=== PATIENT | female | born 1940 | race Caucasian/White ===

== ENCOUNTER 2018-12-30 07:28 | Inpatient (IN) | payer MEDICARE, SELFPAY ==
[~2018-12-30] VITALS: Ht 157.5 cm; Wt 44.0 kg
[2018-12-30] MEDS ORDERED: LEVSOD75 PO (07:54)
[2018-12-30 08:07] LABS: BASOPHILS ABSOLUTE AUTO 0.04 K/mm3 (0.00-0.23); BASOPHILS PERCENT AUTO 1 % (0-2); EOSINOPHILS ABSOLUTE AUTO 0.03 K/mm3 (0.00-0.68); EOSINOPHILS PERCENT AUTO 1 % (0-6); Hematocrit 45.1 % (33.0-51.0); Hemoglobin 14.9 g/dL (11.5-16.0); IMMATURE GRAN ABSOLUTE AUTO 0.02 K/mm3 (0.00-0.10); IMMATURE GRAN PERCENT AUTO 0 % (0-1); LYMPHOCYTES PERCENT AUTO 11 % (21-46); MONOCYTES PERCENT AUTO 9 % (4-13); Mean Corpuscular Volume 94 fL (80-100); Mean Platelet Volume 10.4 fL (9.1-12.4); NEUTROPHILS ABSOLUTE AUTO 5.06 K/mm3 (1.96-9.15); NEUTROPHILS PERCENT AUTO 78 % (41-73); Platelet Count 244 K/mm3 (150-400); RDW Standard Deviation 41.4 fL (35.1-46.3); White Blood Cell Count 6.45 K/mm3 (4.00-11.30)
[2018-12-30 08:33] LABS: Alanine Aminotransfer (ALT/SGP 20 U/L (12-78); Albumin, Blood 3.8 g/dL (3.4-5.0); Alk Phos 97 U/L (50-136); Anion Gap 7 mmol/L (6-16); Aspartate Aminotrans (AST/SGOT 18 U/L (12-37); Blood Urea Nitrogen 13 mg/dL (8-24); Bun/Creatinine Ratio 13.6 (12.0-20.0); CO2, Blood 31 mmol/L (21-32); Calcium, Blood 8.9 mg/dL (8.5-10.1); Chloride, Blood 96 mmol/L (98-108); Creatinine, Blood 0.96 mg/dL (0.40-1.00); Glomerular Filtration Rate >60 (60-); Glucose, Blood 110 mg/dL (70-99); Potassium, Blood 3.4 mmol/L (3.5-5.5); Sodium, Blood 134 mmol/L (136-145); Total Protein, Blood 7.8 g/dL (6.4-8.2)
[2018-12-30 10:34] LABS: Source, Urine Clean Catch
[2018-12-30 10:40] LABS: Appearance, Urine Clear (Clear); Bilirubin, Urine Neg (Neg); Blood, Urine Neg (Neg); Color, Urine Yellow (P-Yellow); Glucose Qualitative, Urine Neg (Neg); Ketones, Urine 2+ (Neg); Leukocyte Esterase, Urine Neg (Neg); Nitrite, Urine Neg (Neg); Protein, Urine 1+ (Neg); Urobilinogen, Urine 1+ (Normal)
--- NOTE | 2018-12-30 17:48 | NUR ---
SHIFT SUMMARY PT A&OX4, VSS. PAIN MANAGED PER EMAR; FENTANYL AND OXYCODONE AVAILABLE. NAUSEA TX'D WITH IV ZOFRAN, ODT IS ALSO AVAILABLE. LOST 2 IVS TODAY; PLAN IS FOR POWERGLIDE PLACEMENT AT NOC SHIFT WHEN MED FLOOR HAS A PROCEDURE NURSE AVAILABLE. AMB INDEPENDENT TO BRP, VOIDING WELL, MANJU SMALL AMT CLEARS. WCTM & TX PRN UNTIL REPORT GIVEN TO ONCOMING NOC RN.
--- NOTE | 2018-12-31 05:33 | NUR ---
SHIFT SUMMARY PT RESTED WELL T/O NIGHT. AAOX4. TOLERATING SIPS CLEAR LIQUID DIET. PT DENIES PAIN/NAUSEA T/O NIGHT. NEW MIDLINE PLACED THIS SHIFT, IVF RESUMED PER ORDERS. PT UP TO RESTROOM SBA, NO FLATUS + BM THIS SHIFT. CALL LIGHT IN REACH. PT RESTING AT THIS TIME.
[2018-12-31 07:38] LABS: BASOPHILS ABSOLUTE AUTO 0.04 K/mm3 (0.00-0.23); BASOPHILS PERCENT AUTO 1 % (0-2); EOSINOPHILS ABSOLUTE AUTO 0.07 K/mm3 (0.00-0.68); EOSINOPHILS PERCENT AUTO 2 % (0-6); Hematocrit 38.6 % (33.0-51.0); Hemoglobin 12.6 g/dL (11.5-16.0); IMMATURE GRAN ABSOLUTE AUTO 0.01 K/mm3 (0.00-0.10); IMMATURE GRAN PERCENT AUTO 0 % (0-1); LYMPHOCYTES ABSOLUTE AUTO 0.76 K/mm3 (0.84-5.20); LYMPHOCYTES PERCENT AUTO 20 % (21-46); MONOCYTES ABSOLUTE AUTO 0.49 K/mm3 (0.16-1.47); MONOCYTES PERCENT AUTO 13 % (4-13); Mean Corpuscular HGB 30.1 pg (26.0-34.0); Mean Corpuscular HGB Conc 32.6 g/dL (31.5-36.5); Mean Corpuscular Volume 92 fL (80-100); Mean Platelet Volume 10.4 fL (9.1-12.4); NEUTROPHILS ABSOLUTE AUTO 2.51 K/mm3 (1.96-9.15); NEUTROPHILS PERCENT AUTO 65 % (41-73); Platelet Count 195 K/mm3 (150-400); RDW Coefficient Variation 12.1 % (11.7-14.2); RDW Standard Deviation 41.1 fL (35.1-46.3); Red Blood Cell Count 4.18 M/mm3 (3.80-5.20); White Blood Cell Count 3.88 K/mm3 (4.00-11.30)
[2018-12-31 07:53] LABS: Anion Gap 2 mmol/L (6-16); Blood Urea Nitrogen 9 mg/dL (8-24); Bun/Creatinine Ratio 10.3 (12.0-20.0); CO2, Blood 31 mmol/L (21-32); Calcium, Blood 8.4 mg/dL (8.5-10.1); Chloride, Blood 104 mmol/L (98-108); Creatinine, Blood 0.87 mg/dL (0.40-1.00); Glomerular Filtration Rate >60 (60-); Glucose, Blood 97 mg/dL (70-99); Potassium, Blood 3.9 mmol/L (3.5-5.5); Sodium, Blood 137 mmol/L (136-145)
--- NOTE | 2018-12-31 12:28 | NUR ---
pain PATIENT WITH ABD PAIN 7/10 AFTER EATING PART OF FULL LIQUID DIET. AUDIBLE HYPERACTIVE BOWEL TONES AND NAUSEA. PATIENT MEDICATED FOR PAIN AND NAUSEA
--- NOTE | 2018-12-31 14:56 | NUR ---
pain patient reports abd pain 7/10 patient declines pain meds or any other pain interventions at this time. patient belching but not passing flatus, audible bowel sounds head from several feet away from patient
--- NOTE | 2018-12-31 15:16 | NUR ---
report given to lyndsay acuna rn who is assuming care of patient
--- NOTE | 2018-12-31 16:30 | NUR ---
assumed care of pt, recvd report from previous RN Kelsey, pt ambulating in hallway with
--- NOTE | 2019-01-01 06:18 | NUR ---
PT VSS T/O NIGHT. PT DENIED PAIN/N/V. PT REP PASSING SMALL AMT FLATUS, NO BM THIS SHIFT. PT VERBALIZED HESITATION R/T FULL LIQ DIET AFTER INC PAIN AND NAUSEA YESTERDAY W/ADVANCED DIET. PT OFFERED CLEAR LIQ, REQ ONLY WATER. PT AMB INDEP IN ROOM, AMB IN HALLS ENC PT MANJU. IVF CONT PER ORDERS. PT USING CALL LIGHT FOR ASSISTANCE, WILL CONT TO MONITOR UNTIL REP GIVEN TO ONCOMING RN.
--- NOTE | 2019-01-01 09:11 | NUR ---
DR EM IN TO SEE PT.
--- NOTE | 2019-01-01 10:28 | NUR ---
PT IN IMAGING.
--- NOTE | 2019-01-01 11:08 | NUR ---
BACK FROM IMAGING.
--- NOTE | 2019-01-01 11:46 | NUR ---
pt back to imaging
--- NOTE | 2019-01-01 11:53 | NUR ---
BACK FROM IMAGING
--- NOTE | 2019-01-01 16:25 | NUR ---
DR SAAB CALLED REGARDING CONSULT STATED PLANS TO SEE PT IN AM AND MAY ADVANCE PT'S DIET TOLERATED.
--- NOTE | 2019-01-01 17:20 | NUR ---
SUMMARY PT HAD SBFT THIS SHIFT. HAD SEVERAL EPISODES OF LOOSE STOOLS DURING PROCEDURE. REPORTED AN UNWITNESS EPISODE OF EMESIS. PT SITTING UP IN BED AT THIS TIME. STATE PAIN AND NAUSEA BOTH IMPROVED. IV FLUIDS INFUSING W/O DIFFICULTY. PROVIDED BOTTLED WATER PER PT REQUEST. CALL LIGHT IN REACH. PT INDEPENDENT IN ROOM. SPOUSE AT BEDSIDE.
--- NOTE | 2019-01-02 05:41 | NUR ---
PT HAD NO ACUTE CHANGES T/O NIGHT; VSS. PT CONT TO HAVE LOOSE STOOL, REP PAIN AND NAUSEA IMPROVED, DECLINED NEED FOR PAIN/NAUSEA MEDS. ABD LESS FIRM AND DISTENDED. PT UP INDEP IN ROOM, IS USING CALL LIGHT FOR ASSISTANCE, AWAITING SURGICAL CONSULT. WILL CONT TO MONITOR UNTIL REP GIVEN TO ONCOMING RN.
--- NOTE | 2019-01-02 12:15 | NUR ---
PT ATE FISH SANDWICH SPOUSE BROUGHT IN FOR HER. DECLINED LUNCH TRAY, EXCEPT FOR PUDDING. DENIES NAUSEA OR PAIN AT THIS TIME. RESTING IN BED, CALL LIGHT IN REACH.
--- NOTE | 2019-01-02 15:25 | NUR ---
DISCHARGED REVIEWED DC INSTRUCTIONS W/PT AND SPOUSE. VERBALIZED UNDERSTANDING. DC'D IV, CATHETER INTACT. PT LEFT UNIT IN WC ACCOMPANIED BY SPOUSE W/POSSESSIONS AND DC PAPERWORK IN HAND.
[2019-01-21] MEDS ORDERED: ONDA4 PO (16:05)
[2019-01-21] MEDS ORDERED: Roxicodone5 MG PO (16:07)
== END 2019-01-02 15:11 | disposition home or self-care (01) | DRG 390 ==
LOC: ER 07:28 → SURS 10:28
PROVIDERS: Emergency Medicine; ADMIT Hospitalist
DX: K56.600 Partial intestinal obstruction, unspecified as to cause (principal); E03.9 Hypothyroidism, unspecified; K59.00 Constipation, unspecified
CPT/HCPCS: 36415; 74177; 74250; 80048; 80053; 83690; 83735; 85025; 96361-59; 96374-59; 96375-59; 99285-25; J1200; J1650; J2270; J2405; J3010; J7030; Q9967

== ENCOUNTER 2019-01-23 07:14 | Inpatient (IN) | payer MEDICARE, OTHER ==
[~2019-01-23] VITALS: Ht 157.5 cm; Wt 44.1 kg
[~2019-01-23 07:14] MED LIST: LEVSOD75 PO; ONDA4 PO; Roxicodone5 MG PO
--- NOTE | 2019-01-23 07:54 | NUR ---
INTO SDS. Ambulatory in Day Surgery Patient confirms NPO status and agrees with scheduled surgery. Lungs clear T/O to Auscultation.
--- NOTE | 2019-01-23 18:48 | NUR ---
PT POD 1 EX LAP W/SM BOWEL RESECTION. EPIDURAL IN PLACE FOR PAIN MGMT-DERMATOME T5-L1, PT REPORTS GOOD PAIN MGMT. PREVENA DRESSING INTACT/FOAM COMPRESSED OVER MIDLINE INCISION-NO DRAINAGE PRESENT IN CANISTER.
[2019-01-24 03:59] LABS: BASOPHILS ABSOLUTE AUTO 0.01 K/mm3 (0.00-0.23); BASOPHILS PERCENT AUTO 0 % (0-2); EOSINOPHILS PERCENT AUTO 0 % (0-6); Hematocrit 40.3 % (33.0-51.0); Hemoglobin 13.8 g/dL (11.5-16.0); IMMATURE GRAN ABSOLUTE AUTO 0.01 K/mm3 (0.00-0.10); IMMATURE GRAN PERCENT AUTO 0 % (0-1); LYMPHOCYTES PERCENT AUTO 7 % (21-46); MONOCYTES ABSOLUTE AUTO 0.21 K/mm3 (0.16-1.47); MONOCYTES PERCENT AUTO 3 % (4-13); Mean Corpuscular HGB Conc 34.2 g/dL (31.5-36.5); Mean Corpuscular Volume 91 fL (80-100); Mean Platelet Volume 9.9 fL (9.1-12.4); NEUTROPHILS ABSOLUTE AUTO 6.21 K/mm3 (1.96-9.15); NEUTROPHILS PERCENT AUTO 90 % (41-73); Platelet Count 191 K/mm3 (150-400); RDW Coefficient Variation 12.5 % (11.7-14.2); Red Blood Cell Count 4.45 M/mm3 (3.80-5.20); White Blood Cell Count 6.94 K/mm3 (4.00-11.30)
[2019-01-24 04:16] LABS: Bun/Creatinine Ratio 12.3 (12.0-20.0); Calcium, Blood 7.8 mg/dL (8.5-10.1); Creatinine, Blood 0.98 mg/dL (0.40-1.00); Potassium, Blood 3.4 mmol/L (3.5-5.5)
--- NOTE | 2019-01-24 05:02 | NUR ---
TELE PLACED PER DR. NEAL'S ORDER. ST 112 WITH PAC'S PER EMERSON SALOMON. WILL CONTINUE TO MONITOR.
--- NOTE | 2019-01-24 05:16 | NUR ---
DR. NELA INFORMED OF PT'S TELE. WILL CONTINUE TO MONITOR.
--- NOTE | 2019-01-24 06:36 | NUR ---
SHIFT SUMMARY LYING ON HER RIGHT SIDE WITH EYES CLOSED AND HOB AT 30 DEGREES. HAS RESTED IN BETWEEN VS AND EPIDURAL CHECKS Q 1HR. NOTED INCREASE IN HR TO 120-140'S. PLACED ON TELE PER MD ORDER. ST WITH PAC'S 110'S NOTED ON PLACEMENT. CALL RECIEVED FROM TT STATING HR SUSTAINING IN THE 130'S, IS ASYMPTOMATIC. DENIES PAIN, DISCOMFORT, OR FURTHER NEEDS AT THIS TIME. SAFETY MEASURES IN PLACE. WILL GIVE HAND OFF TO ONCOMING SHIFT UUSING SBAR.
--- NOTE | 2019-01-24 07:10 | NUR ---
recvd report from previous shift RN Halie, pt awake, a/0 x 4, pleasant/cooperative, lying in bed with bed rails up x 2, bed in lowest position, call light within reach. pt has DIRECTOR OF TRAUMA button, call light within reach.
--- NOTE | 2019-01-24 09:24 | NUR ---
pt's spouse to visit
--- NOTE | 2019-01-24 11:05 | NUR ---
dr azam alexandre on pt
--- NOTE | 2019-01-24 16:58 | NUR ---
ASSUMING CARE OF PT FROM MONICA Reyes RN.
--- NOTE | 2019-01-24 19:22 | NUR ---
summary NO ACUTE CHANGES SINCE ASSUMING CARE OF PT. RESTING W/EYES CLOSED. 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
--- NOTE | 2019-01-25 05:48 | NUR ---
SHIFT SUMMARY LYING ON HER LEFT SIDE WITH EYES CLOSED AND HOB AT 30 DEGREES. HAS RESTED WELL THIS SHIFT. DENIES PAIN, DISCOMFORT, OR FURTHER NEEDS AT THIS TIME. SAFETY MEASURES IN PLACE. WILL GIVE HAND OFF TO ONCOMING SHIFT UUSING SBAR.
--- NOTE | 2019-01-25 08:08 | NUR ---
OOB TO CHAIR WITH ASSIST,TOLERATED WELL, SLEPT WELL LAST NIGHT, RATES PAIN AT 3/10, STATES SHE HURTING MORE TODAY AND HAVING "SPASMS" IN ABD, REPORTS HAVING SOME NAUSEA THIS AM AND WAS UNABLE TO TOLERATE FULL LIQUID DIET LAST NIGHT FOR DINNER DUE TO NAUSEA, PT CONCERNED ABOUT RESTARTING HER SYNTHROID THIS AM, WILL NOTIFY DR. NEAL, ABD MILDLY DISTENDED AND TENDER TO TOUCH, HYPOACTIVE BOWEL TONES T/O ABD, MEDICATED WITH ZOFRAN AND TORADOL THIS AM, PT USING INCENTIVE SPIROMETER INSTRUCTED, OOB FOR MEALS TODAY, AMBULATE THE HALLS WITH ASSIST.
--- NOTE | 2019-01-25 11:21 | NUR ---
AMBULATED DOWN THE HALLS W/ STANDBY ASSIST, TOLERATED WELL, DENIES ANY ABD PAIN OR NAUSEA, REPORTS TOLERATED FULL LIQUID BREAKFAST BETTER THIS AM, TELE PACO'D.
--- NOTE | 2019-01-25 16:15 | NUR ---
NAUSEA C/O NAUSEA, PT'S REPORTS PT VOMITTED "FOAMY ORANGE" EMESIS, STATES "IT LOOKED LIKE THE TOMATO SOUP SHE HAD FOR LUNCH" MEDICATED W/ ZOFRAN, PT ALSO STARTED HAVING LIQUID STOOLS AND SOME ABD CRAMPING, CONT. TO MONITOR FOR ANY CHANGES, ASSIST TO AMBULATE WHEN NAUSEA IS BETTER.
--- NOTE | 2019-01-25 18:08 | NUR ---
SUMMAR FELF BETTER THIS AM BUT CONTINUES TO HAVE NAUSEA OFF AND ON, WORSE THIS EVENING WITH EMESIS, PT HASN'T BEEN ABLE TO AMBULATE MORE DUE TO MORE NAUSEA SINCE AFTER LUNCH, INSTRUCTED TO JUST TRY SIPS OF CLEAR LIQUIDS FOR NOW, CONTINUES TO HAVE LOOSE WATERY STOOLS, PAIN HAS BEEN TOLERABLE WITH EPIDURAL, NO OTHER CHANGES THIS SHIFT.
--- NOTE | 2019-01-25 19:23 | NUR ---
EPIDURAL EPIDURAL LINE NOTED DISCONNECTED FROM THE CONNECTION, DR. JONES NOTIFIED ORDERED TO DC EPIDURAL, FBP RN TO DC LINE.
--- NOTE | 2019-01-25 19:35 | NUR ---
EPIDURAL CATHETER REMOVED DUE TO LINE BEING BROKEN. CATHETER IS FOUND TO BE INTACT. SITE WNL.
--- NOTE | 2019-01-26 01:36 | NUR ---
OLVERA CATH REMOVED WITH TIP TIP AND BULB INTACT. PERICARE PERFORMED. DENIES PAIN, DISCOMFORT, OR FURTHER NEEDS AT THIS TIME. WILL CONTINUE TO MONITOR.
--- NOTE | 2019-01-26 06:23 | NUR ---
SHIFT SUMMARY LYING IN ANDREA FOWLES WITH EYES CLOSED. HAS BEEN OOB TO BSC MULTIPLE TIMES THIS SHIFT. EPIDURAL AND OLVERA CATH REMOVED THIS SHIFT. SENSATION RETURNED TO BASELINE, AND PT HAS VOIDED X2 THIS SHIFT. DENIES PAIN, DISCOMFORT, OR FURTHER NEEDS AT THIS TIME. SAFETY MEASURES IN PLACE. WILL GIVE HAND OFF TO ONCOMING SHIFT UUSING SBAR.
--- NOTE | 2019-01-26 15:18 | NUR ---
SHIFT SUMMARY PT A&OX4, VSS, POD3 EXP LAP SB RESECT, MIDLINE PREVENA, SM AMT FLATUS, +BURPING, SOFT BMS X2 TODAY. PAIN MANAGED WITH 5 MG NORCO & TORADOL. AMB W/FWW TO BRP/CHAIR/HALLWAY. MANJU PO FL DIET; DENIES N&V. AT BEDSIDE. WCTM & TX PER EMAR UNTIL REPORT GIVEN TO ONCOMING JONA RN.
--- NOTE | 2019-01-27 07:10 | NUR ---
SUMMARY: POD 4 SM BOWEL RESECTION AND EXP LAP BY DR. NEAL. VSS, AFEBRILE, TOLERATING FULL LIQ DIET, PASSING GAS AND HAD SMALL, SOFT BM IN NOC. PAIN WELL CONTROLLED WITH IV TORDAL AND 1 TAB NORCO. ENCOURAGE AMBULATION AND ANTICIPATE POSSIBLE DC HOME LATER THIS DAY.
--- NOTE | 2019-01-27 14:00 | NUR ---
ASSUMED CARE OF PATIENT AT THIS TIME.
[2019-01-28] MEDS ORDERED: HYDR1TAB94 PO (12:54)
--- NOTE | 2019-01-28 13:15 | NUR ---
DR NEAL HERE TO SEE PATIENT, DISCHARGE INSTRUCTIONS RECEIVED . DISCHARGE TEACHING COMPLETED TO PATIENT AND PATIENTS -QUESTIONS ANSWERED.
--- NOTE | 2019-01-28 14:24 | NUR ---
[id number] discharged to home with her
== END 2019-01-28 13:38 | disposition home or self-care (01) | DRG 329 ==
LOC: SURS 07:14 → PRE IP 09:15 → SURS 11:45
PROVIDERS: ADMIT Surgery
PROC: 0DTB0ZZ Resection of Ileum, Open Approach (ICD-10-PCS; principal; 2019-01-23 09:15)
DX: K56.600 Partial intestinal obstruction, unspecified as to cause (principal); E43 Unspecified severe protein-calorie malnutrition; Z68.1 Body mass index [BMI] 19.9 or less, adult; R14.0 Abdominal distension (gaseous); E03.9 Hypothyroidism, unspecified; I10 Essential (primary) hypertension; M81.0 Age-related osteoporosis without current pathological fracture; Z85.828 Personal history of other malignant neoplasm of skin
CPT/HCPCS: 36415; 80048; 85025; 88307; A9270-GY; J0690; J1100; J1650; J1885; J2250; J2405; J2543; J2704; J2710; J3010; J7120

== ENCOUNTER → 2022-11-09 | Outpatient (CLI) | payer MEDICARE ==
[~2022-11-09] MED LIST changes: +HYDR1TAB94 PO
[2022-11-09 17:57] LABS: Albumin, Blood 4.2 g/dL (3.4-5.0); Albumin/Globulin Ratio 1.1 (0.8-1.8); Bilirubin, Total 0.6 mg/dL (0.1-1.0); Bun/Creatinine Ratio 16.4 (12.0-20.0); Calcium, Blood 9.9 mg/dL (8.5-10.1); Creatinine, Blood 0.91 mg/dL (0.40-1.00); Globulin, Blood 3.8 g/dL (2.2-4.0); Potassium, Blood 4.2 mmol/L (3.5-5.5)
== END | disposition home or self-care (01) ==
LOC: LAB 15:28 → LAB SHORT 15:28
PROVIDERS: Family Medicine
DX: I10 Essential (primary) hypertension (principal)
CPT/HCPCS: 80053

== ENCOUNTER → 2024-11-18 | Outpatient (CLI) | payer MEDICARE | LOC: LAB 07:46 → LAB SHORT 07:46 | DX: L57.0 Actinic keratosis (principal) | CPT/HCPCS: 88305 ==